=== PATIENT | female | born 1950 | race Hispanic/Latino ===

== ENCOUNTER 2017-12-23 17:15 | Inpatient (IN) | payer MEDICARE, OTHER ==
[2017-12-23 17:33] VITALS: BMI 20.6
[2017-12-23] MEDS ORDERED: Albuterol-Ipratrop 3 mg / 0.5 (3 ml) UD IH STA (17:47)
--- NOTE | 2017-12-23 17:57 | ED PDOC ---
Arrival/HPI - General Time Seen by Provider: 12/23/17 17:21 Historian: Patient - History of Present Illness Narrative History of Present Illness (Text): 12/23/17 17:42 A 67 year old female, whose past medical history includes COPD, asthma, and emphysema, presents to the emergency department complaining of shortness of breath and chest pain. Patient reports around 09:30 while at work, patient began experiencing shortness of breath and took nebulizer pump for relief. States also experiencing chest tightness for approximately 30 minutes and then it went away. However later today began experiencing tightness again and worsened with deep breaths. Patient mentions symptoms are different than from baseline. Patient denies any complaints at this time. No PMD Past Medical History - Provider Review Nursing Documentation Reviewed: Yes - Infectious Disease Hx of Infectious Diseases: None - Reproductive Menopause: Yes - Cardiac Hx Cardiac Disorders: Yes Hx Hypertension: Yes - Pulmonary Hx Respiratory Disorders: Yes Hx Bronchitis: Yes Hx Chronic Obstructive Pulmonary Disease (COPD): Yes Hx Emphysema: Yes - Neurological Hx Neurological Disorder: No - HEENT Hx HEENT Disorder: No - Renal Hx Renal Disorder: No - Endocrine/Metabolic Hx Endocrine Disorders: No - Hematological/Oncological Hx Blood Disorders: No - Integumentary Hx Dermatological Disorder: No - Musculoskeletal/Rheumatological Hx Musculoskeletal Disorders: Yes Hx Falls: Yes (mechanical) Hx Osteoporosis: Yes - Gastrointestinal Hx Gastrointestinal Disorders: Yes Hx Diverticulitis: Yes - Genitourinary/Gynecological Hx Genitourinary Disorders: Yes Hx Urinary Tract Infection: Yes - Psychiatric Hx Psychophysiologic Disorder: No Hx Depression: No Hx Emotional Abuse: No Hx Physical Abuse: No Hx Substance Use: No - Surgical History Hx Cholecystectomy: Yes Hx Tonsillectomy: Yes Other/Comment: ovarian cysts removed. - Anesthesia Hx Anesthesia: Yes Hx Anesthesia Reactions: No Hx Malignant Hyperthermia: No - Suicidal Assessment Feels Threatened In Home Enviroment: No Family/Social History - Physician Review Nursing Documentation Reviewed: Yes Family/Social History: No Known Family HX Smoking Status: Former Smoker Hx Alcohol Use: Yes Frequency of alcohol use: Socially Hx Substance Use: No Allergies/Home Meds Allergies/Adverse Reactions: Allergies No Known Allergies Allergy (Verified 09/11/16 13:14) Home Medications: Home Meds Medication Instructions Recorded Confirmed Albuterol Sulfate [Proair Hfa] 1 puff INH BID PRN 11/16/12 12/24/17 Montelukast [Singulair] 10 mg PO DAILY 11/16/12 12/24/17 Aclidinium [place] [Tudorza 400 mcg 12/24/17 Pressair] Benazepril HCl [Lotensin] 20 mg PO 12/24/17 Budesonide/Formoterol Fumarate 1 aer 12/24/17 [Symbicort] Fexofenadine HCl [EchoNf] 180 mg PO DAILY 12/24/17 12/24/17 Omeprazole 40 mg PO DAILY 12/24/17 12/24/17 amLODIPine [Norvasc] 10 mg PO DAILY 12/24/17 12/24/17 Review of Systems - Review of Systems Constitutional: Fatigue. absent: Fevers, Night Sweats Eyes: absent: Vision Changes ENT: absent: Hearing Changes Respiratory: SOB Cardiovascular: Chest Pain (tightness worse with deep breaths), [place] Gastrointestinal: absent: Abdominal Pain, Diarrhea, Nausea, Vomiting Genitourinary Female: absent: Frequency Musculoskeletal: absent: Back Pain Skin: absent: Rash Neurological: absent: Headache, Dizziness Psychiatric: absent: Depression Physical Exam - Physical Exam Narrative Physical Exam (Text): Head: Atraumatic. Normocephalic. Eyes: PERRL. EOMI. Conjunctivae are not pale. ENT: Mucous membranes are moist and intact. Oropharynx is clear and symmetric. Neck: Supple. Full ROM. No JVD. No lymphadenopathy. Cardiovascular: Regular rate. Regular rhythm. No murmurs, rubs, or gallops. Distal pulses are 2+ and symmetric. Pulmonary/Chest: Bilateral expiratory wheezing, no accessory muscle usage. Mildly tachypneic. Abdominal: Soft and non-distended. There is no tenderness. No rebound, guarding, or rigidity. No organomegaly. Good bowel sounds. Back: No CVA tenderness. Extremities: No edema. No cyanosis. No clubbing. Full range of motion in all extremities. No calf tenderness. Skin: Skin is warm and dry. No petechiae. No purpura. Neurological: Alert, awake, and oriented. No focal motor or sensory deficits. Psychiatric: Good eye contact. Normal interaction, affect, and behavior. Vital Signs Reviewed: Yes Vital Signs Temp Pulse Resp BP Pulse Ox 12/23/17 23:16 100 H 18 112/61 96 12/23/17 21:16 89 18 133/70 96 12/23/17 19:16 80 18 133/64 99 12/23/17 17:33 98.8 F 85 18 132/65 97 12/23/17 17:16 98.8 F 87 19 132/63 96 Temperature: Afebrile Blood Pressure: Normal Pulse: Regular Respiratory Rate: Tachypneic Appearance: Positive for: Well-Appearing Pain Distress: Mild Mental Status: Positive for: Alert and Oriented X 3 Medical Decision Making ED Course and Treatment: 12/23/17 17:46 Impression: 67 year old female with shortness of breath and chest tightness. Physical exam shows bilateral wheezing. Differential Diagnosis included but are not limited to: COPD Exacerbation vs. Acute Myocardial Infarction vs. PE vs. Pneumonia vs. Pneumothorax. Plan: -- EKG -- Chest X-ray -- Labs -- Duoneb -- SOLU-Medrol -- Blood Culture -- Urine Culture -- Urinalysis -- Reassess and disposition Prior Visits: Notes and results from previous visits were reviewed. Patient was last seen in the emergency department on 09/11/2016 for shortness of breath. Patient was discharged home. Progress Notes: Patient has prior hx of copd. Wheezing noted. Nebulizers and iv solumedrol ordered. 12/23/2017 18:53 Chest X-ray IMPRESSION: No active disease. No significant interval change compared to the prior examination(s). Dictator: Shay Shi MD 12/24/17 12:03 She reports chest tightness is different than past episodes of COPD. Initial EKG and troponin unremarkable, although as patient still with SOB after multiple nebs, will admit for cardiac monitoring and management of COPD symptoms. Ddimer unremarkable. No pleuritic pain noted. No calf pain or edema. Case d/w Dr. Roach, covering for PMD Dr. Haywood, accepts admission to her service. - Lab Interpretations Lab Results: 12/23/17 17:59 12/23/17 17:59 Lab Results 12/23/17 19:13: Urine Color Yellow, Urine Appearance Sl cloudy, Urine pH 7.0, Ur Specific [place] 1.010, Urine Protein Negative, Urine Glucose (UA) Negative, Urine Ketones Negative, Urine Blood Trace-lysed H, Urine Nitrate Negative, Urine Bilirubin Negative, Urine Urobilinogen 0.2, Ur Leukocyte Esterase Moderate H, Urine RBC Negative, Urine WBC 2 - 5 12/23/17 19:13: Influenza Typ A,B (EIA) Negative for flu a/b 12/23/17 17:59: Triglycerides 195 H, Cholesterol 206 H, LDL Cholesterol Direct 111, HDL Cholesterol 57 12/23/17 17:59: Sodium 146, Potassium 3.4 L, Chloride 106, Carbon Dioxide 26, Anion Gap 18, BUN 18, Creatinine 0.8, Est GFR ( Amer) > 60, Est GFR (Non- Af Amer) > 60, Random Glucose 100, Calcium 9.4, Total Bilirubin 0.3, AST 24, ALT 26, Alkaline Phosphatase 45, Lactate Dehydrogenase 514, Total Creatine Kinase 78, Troponin I < 0.01, NT-Pro-B Natriuret Pep 104, Total Protein 6.6, Albumin 4.2, Globulin 2.4, Albumin/Globulin Ratio 1.7 12/23/17 17:59: PT 11.1, INR 0.97, APTT 31.1, D-Dimer, Quantitative < 200 12/23/17 17:59: WBC 7.1, RBC 4.47, Hgb 13.4, Hct 39.8, MCV 89.0, MCH 30.0, MCHC 33.7, RDW 13.6, Plt Count 262, MPV 8.9, Gran % 45.6 L, Lymph % (Auto) 41.9 H, [place] % (Auto) 10.9 H, Eos % (Auto) 1.3 L, Baso % (Auto) 0.3, Gran # 3.23, Lymph # (Auto) 3.0, [place] # (Auto) 0.8 H, Eos # (Auto) 0.1, Baso # (Auto) 0.02 - RAD Interpretation Radiology Orders: 12/23/17 17:46 CHEST PORTABLE [RAD] Stat Front Maker Lockstitch: Radiologist - EKG Interpretation Interpreted by ED Physician: Yes Type: 12 lead EKG - Medication Orders Current Medication Orders: Acetaminophen (Tylenol 325mg Tab) 650 mg PO Q6H PRN PRN Reason: Fever >100.4 F Albuterol/Ipratropium (Duoneb 3 Mg/0.5 Mg (3 Ml) Ud) 3 ml IH Q2H PRN PRN Reason: Shortness of Breath Albuterol/Ipratropium (Duoneb 3 Mg/0.5 Mg (3 Ml) Ud) 3 ml IH [id number] [facility] Last Admin: 12/24/17 07:51 Dose: 3 ml Amlodipine Besylate (Norvasc) 10 mg PO DAILY [facility] Last Admin: 12/24/17 11:05 Dose: 10 mg MAR Blood Pressure Document 12/24/17 11:05 VM (Rec: 12/24/17 11:05 [id number]) Blood Pressure Blood Pressure (100/60-150/90) 125/72 Diphenhydramine HCl (Benadryl) 25 mg PO Q6H PRN PRN Reason: Allergy symptoms Methylprednisolone (Solu-Medrol) 40 mg IV Q8 [facility] Last Admin: 12/24/17 05:34 Dose: 40 mg eMAR Start Stop Document 12/24/17 05:34 AP (Rec: 12/24/17 05:34 AP [id number]) Intravenous Solution Start Date 12/24/17 Start Time 05:34 Montelukast Sodium (Singulair) 10 mg PO DAILY [facility] Last Admin: 12/24/17 11:05 Dose: 10 mg Ondansetron HCl (Zofran Inj) 4 mg IVP Q6H PRN PRN Reason: Nausea/Vomiting Oxycodone/Acetaminophen (Percocet 5/325 Mg Tab) 1 tab PO TID PRN PRN Reason: Pain, severe (8-10) Stop: 12/26/17 22:25 Pantoprazole Sodium (Protonix Ec Tab) 40 mg PO 0600 [facility] Last Admin: 12/24/17 05:34 Dose: 40 mg Discontinued Medications Albuterol/Ipratropium (Duoneb 3 Mg/0.5 Mg (3 Ml) Ud) 3 ml IH STAT STA Stop: 12/23/17 17:48 Last Admin: 12/23/17 17:59 Dose: 3 ml Albuterol/Ipratropium (Duoneb 3 Mg/0.5 Mg (3 Ml) Ud) 3 ml IH Q15M ERVIN Stop: 12/23/17 21:46 Last Admin: 12/23/17 22:00 Dose: 3 ml Aspirin (Aspirin Chewable) 81 mg PO STAT STA Stop: 12/23/17 21:36 Last Admin: 12/23/17 23:24 Dose: 81 mg Methylprednisolone (Solu-Medrol) 125 mg IVP STAT STA Stop: 12/23/17 17:48 Last Admin: 12/23/17 17:58 Dose: 125 mg IVP Administration Document 12/23/17 17:58 SRE (Rec: 12/23/17 17:59 SRE [id number]) Charges for Administration # of IVP Administrations 1 Potassium Chloride (K-Dur 20 Meq Er Tab) 20 meq PO STAT STA Stop: 12/23/17 22:42 Last Admin: 12/23/17 23:24 Dose: 20 meq - Scribe Statement The provider has reviewed the documentation as recorded by the José Miguel Chahal Provider Scribe Attestation: All medical record entries made by the Vandanaibe were at my direction and personally dictated by me. I have reviewed the chart and agree that the record accurately reflects my personal performance of the history, physical exam, medical decision making, and the department course for this patient. I have also personally directed, reviewed, and agree with the discharge instructions and disposition. Disposition/Present on Arrival - Present on Arrival Any Indicators Present on Arrival: No History of DVT/PE: No History of Uncontrolled Diabetes: No Urinary Catheter: No History of Decub. Ulcer: No History Surgical Site Infection Following: None - Disposition Have Diagnosis and Disposition been Completed?: Yes Diagnosis: COPD exacerbation, Chest pain Disposition: HOSPITALIZED Disposition Time: 20:00 Patient Plan: Admission, Telemetry Patient Problems: Current Active Problems Problem Status Onset COPD exacerbation Acute Chest pain Acute Condition: FAIR
[2017-12-23 18:08] LABS: BASO # 0.02 K/mm3 (0.0-2.0); BASO % 0.3 % (0.0-3.0); EOS # 0.1 (0.0-0.7); EOS % 1.3 % (1.5-5.0); GRAN # 3.23 (1.4-6.5); GRAN % 45.6 % (50.0-68.0); HEMOGLOBIN 13.4 g/dL (12.0-16.0); LYMPH % 41.9 % (22.0-35.0); MEAN CORPUSCULAR HGB CONC 33.7 g/dl (31.0-37.0); MEAN PLATELET VOLUME 8.9 fl (7.0-11.0); MONO # 0.8 (0.1-0.6); MONO % 10.9 % (1.0-6.0); RBC 4.47 10^6/uL (3.5-6.1); RED CELL DISTRIBUTION WIDTH 13.6 % (11.5-14.5); WHITE BLOOD COUNT 7.1 10^3/ul (4.5-11.0)
[2017-12-23 18:17] LABS: INR 0.97 (0.93-1.08); PROTHROMBIN TIME 11.1 SECONDS (9.4-12.5)
[2017-12-23 18:18] LABS: D DIMER < 200 ng/mL (0-243); PARTIAL THROMBOPLASTIN TIME 31.1 Seconds (25.1-36.5)
[2017-12-23 18:20] LABS: ALB/GLOB RATIO 1.7 (1.1-1.8); ALBUMIN 4.2 g/dL (3.0-4.8); ALT/SGPT 26 U/L (7-56); AST/SGOT 24 U/L (14-36); BLOOD UREA NITROGEN 18 mg/dL (7-21); CALCIUM 9.4 mg/dL (8.4-10.5); GFR AFRICAN-AMERICAN > 60; GFR NON-AFRICAN AMERICAN > 60
[2017-12-23 18:32] LABS: B-TYPE NATRIURETIC PEPTIDE 104 pg/mL (0-450); TROPONIN I < 0.01 ng/mL
--- NOTE | 2017-12-23 18:54 | RAD ---
HISTORY: Chest pain COMPARISON: 11/22/2015 FINDINGS: LUNGS: No active pulmonary disease. PLEURA: No significant pleural effusion identified, no pneumothorax apparent. CARDIOVASCULAR: Normal. OSSEOUS STRUCTURES: No significant abnormalities. VISUALIZED UPPER ABDOMEN: Normal. OTHER FINDINGS: None. IMPRESSION: No active disease. No significant interval change compared to the prior examination(s).
[2017-12-23 19:21] LABS: URINE BILIRUBIN NEGATIVE (NEGATIVE); URINE BLOOD TRACE-LYSED (NEGATIVE); URINE COLOR YELLOW (YELLOW); URINE GLUCOSE (UA) NEGATIVE (NEGATIVE); URINE LEUKOCYTE ESTERASE MODERATE Leu/uL (NEGATIVE); URINE PROTEIN NEGATIVE mg/dL (<30 mg/dL); URINE UROBILINOGEN 0.2 E.U./dL (<1 E.U./dL)
[2017-12-23 19:22] LABS: URINE APPEARANCE SL CLOUDY (CLEAR)
[2017-12-23 19:24] LABS: URINE RBC NEGATIVE /hpf (0-2)
[2017-12-23] MEDS: Albuterol-Ipratrop 3 mg / 0.5 (3 ml) UD IH SCH ×3 (21:13→22:00)
[2017-12-23] MEDS ORDERED: Oxycodone/Acetaminophen 5/325 mg Tab PO PRN (22:24)
[2017-12-23] MEDS ORDERED: Albuterol-Ipratrop 3 mg / 0.5 (3 ml) UD IH PRN (22:25)
[2017-12-23] MEDS ORDERED: Potassium Chloride 20 mEq ER Tab PO STA (22:41)
[2017-12-24 00:09] LABS: HDL CHOLESTEROL 57 mg/dL (29-60)
[2017-12-24 00:20] LABS: LDL CHOLESTEROL 111 mg/dL (0-129)
[2017-12-24] MEDS: Albuterol-Ipratrop 3 mg / 0.5 (3 ml) UD IH SCH ×2 (04:29→07:51)
[2017-12-24] MEDS: Pantoprazole 40 mg EC Tab PO SCH (05:34)
[2017-12-24] MEDS: MethylPREDNISolone 40 mg Vial IV SCH ×3 (05:34→21:58)
[2017-12-24 07:38] LABS: ALB/GLOB RATIO 1.6 (1.1-1.8); ALBUMIN 4.2 g/dL (3.0-4.8); ALT/SGPT 22 U/L (7-56); AST/SGOT 28 U/L (14-36); BLOOD UREA NITROGEN 17 mg/dL (7-21); CALCIUM 9.3 mg/dL (8.4-10.5); FREE T4 1.09 ng/dL (0.78-2.19); GFR AFRICAN-AMERICAN > 60; GFR NON-AFRICAN AMERICAN > 60
--- NOTE | 2017-12-24 10:06 | HP ---
HISTORY OF PRESENT ILLNESS: A 67-year-old female came to emergency room because of increasing cough, congestion, and shortness of breath. [place] feverish at home, but did not check the temperature, has been having productive cough. Patient states this morning when she went to work, she did not feel well and took her usual nebulizer pump with this with little relief. She also developed chest pain, which was short lived inhalers. Overall, she started to have chest tightness and shortness of breath again. Did not have any fever or chills. No history of hemoptysis. No hematemesis. PAST MEDICAL HISTORY: Significant for: 1. COPD. 2. Asthmatic bronchitis. 3. Hyperlipidemia. 4. MULTIPLE SEASONAL ALLERGIES. 5. Peptic ulcer disease. 6..s/p cholecystectomy and tosilectomy ALLERGIES: SHE HAS SEASONAL ALLERGY. THERE WERE NO FOOD OR DRUG ALLERGY. SOCIAL HISTORY: She is . History of smoking in the remote past. She used to be heavy smoker, but quit a couple of years ago. MEDICATIONS AT HOME: She is on oxycodone, Percocet 1 tablet every 6 hours p.r.n., Singulair 10 mg daily, Benadryl p.r.n., prednisone 40 mg daily, Robaxin, Echo, Nexium 40 mg daily, Symbicort, amlodipine. REVIEW OF SYSTEMS: Significant for cough, congestion, shortness of breath, chest pain. PHYSICAL EXAMINATION: GENERAL: She is awake, alert, oriented, able to communicate. VITAL SIGNS: She is afebrile, pulse 85, respirations 18, blood pressure 132/65. LUNGS: Bilateral, a few expiratory rhonchi. HEART: Reveals S1 and S2 audible. ABDOMEN: Soft and nontender. No rebound. No guarding. NEUROLOGIC: Patient is awake, alert, oriented, communicative. LABORATORY DATA: WBC 7.1, hemoglobin 13.4, hematocrit 39.8, platelets 262. PT 11.1, INR is 0.97. Chemistry: Sodium 146, potassium 3.4, chloride 106, CO2 26, BUN 19, creatinine 0.8, blood sugar of 100. Urinalysis shows trace blood and leukocytes. Flu test is negative . ASSESSMENT AND PLAN: 1. Chronic obstructive pulmonary disease exacerbation. 2. Bronchospasm. 3. Asthmatic bronchitis. 4. Hypertension. 5. Hyperlipidemia. 6. Peptic ulcer disease. PLAN: We will start the patient on IV steroid, nebulizer treatment. We will resume her medications. Follow cardiac enzyme and we will reevaluate the patient in the morning. Chanel Roach MD MTDD
--- NOTE | 2017-12-24 14:05 | CT ---
PROCEDURE: CT Chest without contrast HISTORY: sob COMPARISON: None. TECHNIQUE: Contiguous axial images were obtained through the chest without intravenous contrast enhancement. Sagittal and coronal reconstructions were performed. Radiation dose (DLP): 186 mGy-cm. This CT exam was performed using one or more of the following dose reduction techniques: Automated exposure control, adjustment of the mA and/or kV according to patient size, and/or use of iterative reconstruction technique. FINDINGS: LUNGS: Emphysematous changes are seen in both upper lobes. The lungs are clear MEDIASTINUM: Unremarkable thoracic aorta. No aneurysm. Normal sized heart. Main pulmonary artery unremarkable. No vascular congestion. No lymphadenopathy. PLEURA: No pleural fluid. No pneumothorax. BONES: No fracture. No destructive lesion. UPPER ABDOMEN: Grossly unremarkable. OTHER FINDINGS: None. IMPRESSION: Emphysematous changes in the upper lobes.
[2017-12-24] MEDS: Levalbuterol 1.25 MG/3 ML Inhal Soln UD IH SCH ×2 (14:15→19:51)
--- NOTE | 2017-12-24 15:56 | PN ---
DATE: 12/24/2017 SUBJECTIVE: The patient is 67 years old, seen and examined, still has some cough and congestion, better than last night. Denies any nausea or vomiting, complaining of some chest tightness upon taking deep breath. OBJECTIVE: VITAL SIGNS: She is afebrile, pulse 101, respirations 22, blood pressure 134/62. LUNGS: Bilateral diffusely decreased breath sounds. HEART: S1 and S2, audible. ABDOMEN: Soft, nontender. No rebound. No guarding. NEUROLOGIC: The patient is awake, alert, oriented, communicative. LABORATORY EXAM: Sodium 144, potassium 3.5, chloride 107, CO2 of 21. BUN 17, creatinine 0.7. Blood sugar of 181. LFTs are within normal limits. Triglyceride 195, cholesterol 206. Flu test is negative. ASSESSMENT: 1. Chronic obstructive pulmonary disease exacerbation. 2. Hypertension. 3. Hyperlipidemia. 4. Status post cholecystectomy. 5. Gastritis. PLAN: We will request for cardiology evaluation. I will order for an echocardiogram. Continue current nebulizer treatment and I will switch her DuoNeb to Xopenex to alleviate her tachycardia after nebulizer treatment and there is a history of longtime smoking. I will order for the CT scan of the chest to rule out underlying malignancy and order for echocardiogram to see her LV function and from tomorrow, we will start to taper down her to steroids and we will reevaluate the patient. Chanel Roach MD
--- NOTE | 2017-12-24 16:43 | CARD ---
APPROVED REPORT EXAM: Two-dimensional and M-mode echocardiogram with Doppler and color Doppler. INDICATION Dyspnea 2D DIMENSIONS Left Atrium (2D)3.0 (1.6-4.0cm)IVSd0.7 (0.7-1.1cm) LVDd3.2 (3.9-5.9cm)PWd0.8 (0.7-1.1cm) LVDs2.1 (2.5-4.0cm)FS (%) 35.6 % LVEF (%)66.3 (>50%) M-Mode DIMENSIONS Aortic Root2.50 (2.2-3.7cm)Aortic Cusp Exc.1.60 (1.5-2.0cm) Aortic Valve AoV Peak Tfxjqafs099.0cm/Buddy Peak GR.10mmHg Mitral Valve MV E Niejnsst88.3cm/sMV A Hbukpygt372.0cm/sE/A ratio0.8 TDI Lateral E' Peak V10.20cm/sMedial E' Peak V8.38cm/sE/Lateral E'8.8 E/Medial E'10.7 Pulmonary Valve PV Peak Limrwfrp406.0cm/sPV Peak Grad.5mmHg Tricuspid Valve TR Peak Zeakurip840my/sRAP [id number] Peak Gr.10mmHg [id number] LEFT VENTRICLE The left ventricle is normal size. There is normal left ventricular wall thickness. The left ventricular function is normal. The left ventricular ejection fraction is within the normal range. There is normal LV segmental wall motion. Transmitral Doppler flow pattern is Grade I-abnormal relaxation pattern. RIGHT VENTRICLE The right ventricle is normal size. There is normal right ventricular wall thickness. The right ventricular systolic function is normal. ATRIA The left atrium size is normal. The right atrium size is normal. AORTIC VALVE The aortic valve is normal in structure. No aortic regurgitation is present. There is no aortic valvular stenosis. MITRAL VALVE The mitral valve is normal in structure. There is no mitral valve regurgitation noted. TRICUSPID VALVE The tricuspid valve is normal in structure. There is no tricuspid valve regurgitation noted. GREAT VESSELS The aortic root is normal in size. PERICARDIAL EFFUSION There is a trace loculated anterior pericardial effusion. <Conclusion> The left ventricle is normal size. There is normal left ventricular wall thickness. The left ventricular function is normal. The left ventricular ejection fraction is within the normal range. There is normal LV segmental wall motion. Transmitral Doppler flow pattern is Grade I-abnormal relaxation pattern.
--- NOTE | 2017-12-24 16:57 | CARD ---
APPROVED REPORT EKG Measurement Heart [id number] <Conclusion> Normal sinus rhythm Normal ECG
[2017-12-25] MEDS: Levalbuterol 1.25 MG/3 ML Inhal Soln UD IH SCH ×4 (01:47→19:40)
[2017-12-25] MEDS: MethylPREDNISolone 40 mg Vial IV SCH ×2 (05:09→21:32)
--- NOTE | 2017-12-25 06:04 | CON ---
DATE: 12/24/2017 SERVICE: Cardiology REASON FOR CONSULTATION: Followup shortness of breath, cardiac evaluation. BRIEF CLINICAL HISTORY: This is a 67-year-old female with past medical history of COPD, asthmatic bronchitis, hypertension, hyperlipidemia, status post cholecystectomy in the past who was working and suddenly at 9:30 a.m yesterday felt very tightness in the chest and unable to breathe. The patient took out her nebulizer treatment, but it did not relieve her for half an hour; this was unusual. Patient went to office, was sent to the emergency room and got admitted here. Cardiac consult was called for evaluation for shortness of breath. PAST MEDICAL HISTORY: Significant for COPD, hypertension, hyperlipidemia, and asthmatic bronchitis. ALLERGIES: SEASONAL, BUT NO FOOD OR MEDICATION. SOCIAL HISTORY: Patient smoked, quit 19 to 20 years ago. Denies any history of alcohol abuse. CURRENT MEDICATIONS: Patient is taking oxycodone 1 tablet every 6 hours, Singulair, Benadryl, prednisone, Robaxin, Nexium, Symbicort, and amlodipine. REVIEW OF SYSTEMS: As per HPI. Positives mentioned significant COPD, emphysema, and asthma. PREVIOUS CARDIAC WORKUP: As follows. Patient had an echocardiography done on 05/08/2015, that showed an ejection fraction of 55% to 60%, trace to mild aortic regurgitation, trace mitral regurgitation, trace tricuspid regurgitation, RV systolic pressure of 19. Then, patient had a previous echo done on 05/20/2014, and that showed normal ventricular size and function, diastolic dysfunction, read by . Patient had a stress test done on 05/20/2014 that showed normal myocardial perfusion study. Ejection fraction 74%. PHYSICAL EXAMINATION: VITAL SIGNS: As follows. Height of the patient is 5 feet 2 inches, weight of the patient is 108 pounds, body mass index 19.8 kg/m2. Rest of the vitals signs: Temperature afebrile, heart rate 101, blood pressure 134/62. HEENT: PERRLA. Extraocular muscles intact. NECK: Supple. No carotid bruit or thyromegaly. CHEST: Clear to auscultation. HEART: S1 and S2 regular. ABDOMEN: Soft. EXTREMITIES: Clubbing and cyanosis negative. LABORATORY DATA: Blood workup as follows: WBC 7.1, hemoglobin 13.1, hematocrit 39.8, platelet count 262. Chemistry shows sodium 144, potassium 3.5, chloride 107, carbon dioxide 21, anion gap of 20, BUN 17, creatinine 0.7. TSH 1.11. Total triglycerides 195. Total cholesterol 206. LDL 111. HDL 57. EKG showed normal sinus at 91. No acute ST-T changes noted. IMPRESSION: Acute exacerbation of chronic obstructive pulmonary disease, hypertension, emphysema. Chest x-ray, no acute ST-T changes noted. Mild congestive changes noted. Patient had a CT chest done. Emphysematous changes in the upper lobe, otherwise unremarkable. No evidence of acute myocardial infarction, possible acute exacerbation of chronic obstructive pulmonary disease, cannot rule out coronary artery disease because the patient said the chest pain persisted for half an hour, though EKG is pretty benign. Multiple risk factors of coronary artery disease to suggest echo and stress test. Patient had, as mentioned, a stress test in 2013, which was essentially negative. PLAN: Patient has already been scheduled for echo today. We will order a stress test tomorrow. Further recommendation after the stress test. We will follow with you. Thank you, Dr. Roach for providing us the opportunity in taking care of the patient, Stacy Coy. Carlito Jacques MD
[2017-12-25] MEDS: Pantoprazole 40 mg EC Tab PO SCH (06:35)
--- NOTE | 2017-12-25 07:41 | CP.PCM.PN ---
Subjective - Date & Time of Evaluation Date of Evaluation: 12/25/17 Time of Evaluation: 06:35 - Subjective Subjective: Lying in bed, awake, denies shortness of breath, denies chest pain, feels okay Reason for consultation and follow up: Cardiac evaluation, shortness of breath, chest pain, COPD, asthma,emphysema,hypertension, hyperlipidemia Seen and examined by me and Dr. Jacques Objective - Vital Signs/Intake and Output Vital Signs (last 24 hours): Temp Pulse Resp BP Pulse Ox 98.4 F 90 19 111/63 97 12/25/17 06:00 12/25/17 06:00 12/25/17 06:00 12/25/17 06:00 12/25/17 06:00 - Medications Medications: Current Medications Acetaminophen (Tylenol 325mg Tab) 650 mg PO Q6H PRN PRN Reason: Fever >100.4 F Albuterol/Ipratropium (Duoneb 3 Mg/0.5 Mg (3 Ml) Ud) 3 ml IH Q2H PRN PRN Reason: Shortness of Breath Amlodipine Besylate (Norvasc) 10 mg PO DAILY [facility] Last Admin: 12/24/17 11:05 Dose: 10 mg Diphenhydramine HCl (Benadryl) 25 mg PO Q6H PRN PRN Reason: Allergy symptoms Last Admin: 12/24/17 21:18 Dose: 25 mg Levalbuterol HCl (Xopenex) 1.25 mg IH [id number] [facility] Last Admin: 12/25/17 01:47 Dose: 1.25 mg Methylprednisolone (Solu-Medrol) 40 mg IV Q8 [facility] Last Admin: 12/25/17 05:09 Dose: 40 mg Montelukast Sodium (Singulair) 10 mg PO DAILY [facility] Last Admin: 12/24/17 11:05 Dose: 10 mg Ondansetron HCl (Zofran Inj) 4 mg IVP Q6H PRN PRN Reason: Nausea/Vomiting Oxycodone/Acetaminophen (Percocet 5/325 Mg Tab) 1 tab PO TID PRN PRN Reason: Pain, severe (8-10) Stop: 12/26/17 22:25 Last Admin: 12/24/17 21:19 Dose: 1 tab Pantoprazole Sodium (Protonix Ec Tab) 40 mg PO 0600 [facility] Last Admin: 12/25/17 06:35 Dose: Not Given - Labs Labs: 12/24/17 06:30 PT 11.1 SECONDS (9.4-12.5) 12/23/17 17:59 INR 0.97 (0.93-1.08) 12/23/17 17:59 APTT 31.1 Seconds (25.1-36.5) 12/23/17 17:59 - Constitutional Appears: No Acute Distress - Eye Exam Eye Exam: Normal appearance - ENT Exam ENT Exam: Mucous Membranes Moist - Respiratory Exam Respiratory Exam: Decreased Breath Sounds, NORMAL BREATHING PATTERN - Cardiovascular Exam Cardiovascular Exam: REGULAR RHYTHM, +S1, +S2 Additional comments: NSR telemetry - GI/Abdominal Exam GI & Abdominal Exam: Soft, Normal Bowel Sounds - Extremities Exam Extremities Exam: Normal Capillary Refill - Neurological Exam Neurological Exam: Alert, Awake, Oriented x3 - Psychiatric Exam Psychiatric exam: Normal Affect, Normal Mood - Skin Skin Exam: Intact, Normal Color, Warm Assessment and Plan - Assessment and Plan (Free Text) Assessment: A 67 year old female who came to the ER due to chest pain and shortness of breath. Prior to admission, patient began experiencing shortness of breath and took nebulizer pump for relief. She claimed also experiencing chest tightness for approximately 30 minutes and then it went away. However later the day began experiencing tightness again and worsened with deep breaths.History of COPD, asthma, and emphysema. hyperlipidemia,hypertension, peptic ulcer disease, cholecystectomy, tonsillectomy, seasonal allergy. Plan: For Stress Test today ECHO done yesterday LVEF 66% normal valves Possible acute exacerbation of chronic COPD On Solumedrol and Singulair and Albuterol treatment Chest pain, will do stress test EKG no ST changes Troponin normal On Norvasc 10 mg daily Heart rate and blood pressure stable K+ 3.5 will order KCL 40 meq po Continue current medications Continue current treatment Will follow up Plan and treatment discussed with Dr. Jacques
[2017-12-25] MEDS ORDERED: Potassium Chloride 40 mEq/30 ml LIQ UD PO ONE (08:04)
[2017-12-25] MEDS ORDERED: Aminophylline 25 mg/ml Inj ONE (09:20)
[2017-12-25] MEDS ORDERED: cefTRIAXone 1 gm 1 GM/100 ML BAG IVPB SCH (11:00)
--- NOTE | 2017-12-25 14:27 | PN ---
DATE: 12/25/2017 SUBJECTIVE: The patient is 67 years old, seen and examined in Cardiology department, having stress test, complaining of chest pressure during the procedure, but there were no EKG changes. Still complain of cough and congestion, but better than before. OBJECTIVE: VITAL SIGNS: The patient was afebrile, pulse 90, respirations 19, blood pressure 111/63. LUNGS: Bilateral fair airflow. No rhonchi or crackle. HEART: S1 and S2 audible. ABDOMEN: Soft, nontender. No rebound. No guarding. NEUROLOGICAL: The patient is awake, alert, oriented, communicative. Moves all extremities. Bilateral leg, no edema. LABORATORY DATA: Flu test is negative. ASSESSMENT: 1. Chronic obstructive pulmonary disease exacerbation. 2. Chest pain, rule out underlying coronary ischemia. 3. History of smoking in the past. 4. Hypertension. 5. Hyperlipidemia. PLAN: We will continue the patient on IV steroid. Continue her on analgesic as needed. She is on Norvasc. She is on Protonix and I will cut down her steroid to 40 every 12 hours. Encourage ambulation. If stress test is okay, we can discontinue her telemetry. We will reevaluate the patient in a.m. Chanel Roach MD
--- NOTE | 2017-12-25 22:41 | CARD ---
APPROVED REPORT Protocol: LEXISCAN Test Type: Lexiscan Sestamibi Stress Test Attending Physician: Dr. Carlito Osei Referring Physician: Dr. Chanel Roach Test Indications: Chest Pain Height:5 ft 2 in Weight:108lbs Medications: TYLENOL, DUONEB, BENADRYL, XOPENEX, SOLU-MEDROL, SINGULAIR, ZOFRAN, PERCOCET Medical History: 67 YEAR OLD FEMALE WITH A H/P COPD, HTN, DIVERTICULITIS AND HIATAL HERNIA, ARTHRITIS Target HR: 154 bpm Resting ECG: RSR. Resting Heart Rate: 97 bpm Resting Blood Pressure: 140/72mmHg Submaximum (85%): 131 bpm PROCEDURE Pharmacologic stress testing was performed using 0.4mg per 5ml of regadenoson given intravenously over 7-10 seconds. POST EXERCISE Reason for Termination: Protocol completed Target HR: No Max HR: 109 bpm 88% of Maximum Predicted HR: 154 bpm Exercise duration: 00:32 min:sec, 0 Stage Exercise capacity: 1.0METs Max Blood Pressure: 140/72mmHg Blood Pressure response to exercise: normal resting BP - appropriate response Heart Rate response to exercise: appropriate Chest Pain: Yes, [place] Pressure Like Chest Pain. Angina index: 0 Arrhythmia: No, none ST Change: No, none Deviation: 0 mm INTERPRETATION Stress EKG Conclusion: IV LEXISCAN NUCLEAR STRESS TEST DURING WHICH PATIENT FELT PRESSURE LIKE CHEST PAIN. NO ST-T CHANGES. NUCL;EAR SCAN REPORT PENDING. Signed by Carlito Osei Electronically Approved: 12/25/2017 12:47:12 EXAM: Myocardial Perfusion REST/STRESS Stress Test Type: Pharmacologic Imaging Protocol Rest Spect myocardial perfusion imaging was performed in supine position 49 minutes following the injection of 9.8 mCi of Tc-99 Myoview. At peak stress, the patient was injected intravenously with 27.8mCi of Tc-99m sestamibi after an infusion time of minutes and 10 seconds. Gated Stress Spect was performed 62 minutes after intravenous Tc-99 Myoview injection. The images were gated to evaluate regional wall motion and calculate ventricular ejection fraction.Images were reconstructed using backfilter projection method in short horizontal and verticle long axis. Spect slices were generated. LV Perfusion The quality of the study is good. The left ventricle is normal in size. The right ventricle is unremarkable. The lung uptake is within normal limits. The distribution of tracer reveals normal uptake pattern throughout the LV myocardium on the stress study. The rest myocardial perfusion study shows no significant change. Wall Motion Wall motion study shows good contractility of the left ventricle. LVEF = 85%. Conclusion 1. Normal SPECT myocardial perfusion study. 2. Normal gated wall motion of the left ventricle. 3. In comparison with the last study of 05/20/2014, there is no significant change.
[2017-12-25 23:51] VITALS: RESP 18
[2017-12-26] MEDS: Levalbuterol 1.25 MG/3 ML Inhal Soln UD IH SCH ×3 (02:56→13:26)
[2017-12-26] MEDS: Pantoprazole 40 mg EC Tab PO SCH (04:59)
[2017-12-26 06:26] VITALS: O2SAT 97
--- NOTE | 2017-12-26 08:07 | CP.PCM.PN ---
Subjective - Date & Time of Evaluation Date of Evaluation: 12/26/17 Time of Evaluation: 06:20 - Subjective Subjective: Awake, denies shortness of breath, denies chest pain, feels okay Reason for consultation and follow up: Cardiac evaluation, shortness of breath, chest pain, COPD, asthma,emphysema,hypertension, hyperlipidemia Seen and examined by me and Dr. Jacques Objective - Vital Signs/Intake and Output Vital Signs (last 24 hours): Temp Pulse Resp BP Pulse Ox 97.7 F 71 18 127/70 97 12/26/17 06:00 12/26/17 06:00 12/26/17 06:00 12/26/17 06:00 12/26/17 06:00 Intake and Output: 12/26/17 12/26/17 06:59 18:59 Intake Total 360 Balance 360 - Medications Medications: Current Medications Acetaminophen (Tylenol 325mg Tab) 650 mg PO Q6H PRN PRN Reason: Fever >100.4 F Albuterol/Ipratropium (Duoneb 3 Mg/0.5 Mg (3 Ml) Ud) 3 ml IH Q2H PRN PRN Reason: Shortness of Breath Amlodipine Besylate (Norvasc) 10 mg PO DAILY [facility] Last Admin: 12/25/17 12:50 Dose: 10 mg Atorvastatin Calcium (Lipitor) 10 mg PO DIN [facility] Last Admin: 12/25/17 17:08 Dose: 10 mg Diphenhydramine HCl (Benadryl) 25 mg PO Q6H PRN PRN Reason: Allergy symptoms Last Admin: 12/25/17 21:32 Dose: 25 mg Ceftriaxone Sodium (Rocephin 1 Gram Ivpb) 1 gm in 100 mls @ 100 mls/hr IVPB DAILY [facility] PRN Reason: Protocol Last Admin: 12/25/17 12:50 Dose: 100 mls/hr Levalbuterol HCl (Xopenex) 1.25 mg IH [id number] [facility] Last Admin: 12/26/17 07:23 Dose: 1.25 mg Methylprednisolone (Solu-Medrol) 40 mg IV Q12 [facility] Last Admin: 12/25/17 21:32 Dose: 40 mg Montelukast Sodium (Singulair) 10 mg PO DAILY [facility] Last Admin: 12/25/17 12:50 Dose: 10 mg Ondansetron HCl (Zofran Inj) 4 mg IVP Q6H PRN PRN Reason: Nausea/Vomiting Oxycodone/Acetaminophen (Percocet 5/325 Mg Tab) 1 tab PO TID PRN PRN Reason: Pain, severe (8-10) Stop: 12/26/17 22:25 Last Admin: 12/24/17 21:19 Dose: 1 tab Pantoprazole Sodium (Protonix Ec Tab) 40 mg PO 0600 [facility] Last Admin: 12/26/17 04:59 Dose: 40 mg - Labs Labs: 12/25/17 12:45 PT 11.1 SECONDS (9.4-12.5) 12/23/17 17:59 INR 0.97 (0.93-1.08) 12/23/17 17:59 APTT 31.1 Seconds (25.1-36.5) 12/23/17 17:59 - Constitutional Appears: No Acute Distress - Head Exam Head Exam: NORMOCEPHALIC - Eye Exam Eye Exam: Normal appearance - ENT Exam ENT Exam: Mucous Membranes Moist - Respiratory Exam Respiratory Exam: Decreased Breath Sounds, NORMAL BREATHING PATTERN - Cardiovascular Exam Cardiovascular Exam: +S1, +S2 - GI/Abdominal Exam GI & Abdominal Exam: Soft, Normal Bowel Sounds - Extremities Exam Extremities Exam: Normal Capillary Refill - Neurological Exam Neurological Exam: Alert, Awake, Oriented x3 - Psychiatric Exam Psychiatric exam: Normal Affect, Normal Mood - Skin Skin Exam: Intact, Normal Color, Warm Assessment and Plan - Assessment and Plan (Free Text) Assessment: A 67 year old female who came to the ER due to chest pain and shortness of breath. Prior to admission, patient began experiencing shortness of breath and took nebulizer pump for relief. She claimed also experiencing chest tightness for approximately 30 minutes and then it went away. However later the day began experiencing tightness again and worsened with deep breaths.History of COPD, asthma, and emphysema. hyperlipidemia,hypertension, peptic ulcer disease, cholecystectomy, tonsillectomy, seasonal allergy.ECHO done yesterday LVEF 66% normal valves Plan: Feels better For Stress Test yesterday- normal result ECHO done yesterday LVEF 66% normal valves EKG no ST changes Troponin normal No evidence of myocardial ischemia Will discontinue telemetry Possible acute exacerbation of chronic COPD On Solumedrol and Singulair and Albuterol treatment On Norvasc 10 mg daily Heart rate and blood pressure stable Continue current medications Continue current treatment Will follow up Plan and treatment discussed with Dr. Jacques
[2017-12-26] MEDS ORDERED: Cefpodoxime (Vantin) 200 mg Tab PO SCH (10:00)
[2017-12-26] MEDS: MethylPREDNISolone 40 mg Vial IV SCH (11:21)
[2017-12-26 11:26] VITALS: BP 122/73; PULSE 75; TEMP 97
--- NOTE | 2017-12-27 09:54 | DS ---
HISTORY OF PRESENT ILLNESS: The patient is a 67-year-old, seen and examined, doing well. She states she feels a lot better, minimal shortness of breath, scanty cough. PHYSICAL EXAMINATION: VITAL SIGNS: She is afebrile, pulse 75, respirations 18, blood pressure 122/73. LUNGS: Bilateral fair airflow. No rhonchi or crackle. HEART: S1, S2 audible. ABDOMEN: Soft, nontender. No rebound. No guarding. NEUROLOGICAL: Patient is awake and alert, able to communicate, ambulatory. DIAGNOSTIC DATA: Stress test that was done yesterday is normal gated wall motion and normal Myoview study. ASSESSMENT: 1. Chronic obstructive pulmonary disease exacerbation. 2. Noncardiac chest pain. 3. Hypertension. 4. Hyperlipidemia. PLAN: Patient is being discharged home on tapering dose of steroid that is Medrol Dosepak and she is given prescription of Ceftin 500 twice a day and she will resume her medication. She will follow up with Dr. Haywood as outpatient. Chanel Roach MD
== END 2017-12-26 16:00 | disposition home or self-care (01) | DRG 192 ==
LOC: ED 17:15 → ERH 22:16 → 2RSO 22:43 → ERH 23:35 → 2RSO 12-24 01:25
PROVIDERS: ADMIT Internal Medicine; ATTEND Internal Medicine
PROC: 3E0F7GC Introduction of Other Therapeutic Substance into Respiratory Tract, Via Natural or Artificial Opening (ICD-10-PCS; principal; 2017-12-24)
DX: J44.1 Chronic obstructive pulmonary disease with (acute) exacerbation (principal); I10 Essential (primary) hypertension; R07.89 Other chest pain; M81.0 Age-related osteoporosis without current pathological fracture; E78.5 Hyperlipidemia, unspecified; K29.70 Gastritis, unspecified, without bleeding; K27.9 Peptic ulcer, site unspecified, unspecified as acute or chronic, without hemorrhage or perforation; Z87.891 Personal history of nicotine dependence; Z90.49 Acquired absence of other specified parts of digestive tract

== ENCOUNTER 2018-09-14 15:18 | Outpatient (CLI) | payer MEDICARE, OTHER | END 2018-09-14 15:19 | disposition home or self-care (01) | LOC: RAD 15:18 ==